=== PATIENT | female | born 1960 | race African-American/Black ===

== ENCOUNTER 2016-10-06 12:30 | Emergency (ER) | payer SELFPAY ==
[2016-10-06 11:45] LABS: BASOPHILS 0.1 %; BASOPHILS ABSOLUTE 0.01 10/3/uL (0.0-0.16); EOSINOPHILS 0 %; HEMATOCRIT 40.5 % (36.0-48.0); HEMOGLOBIN 13.7 g/dL (12.0-16.0); IMMATURE GRANULOCYTES 0.3 %; IMMATURE GRANULOCYTES ABSOLUTE 0.02 10/3/uL (0.0-0.11); LYMPHOCYTES 14.2 %; LYMPHOCYTES ABSOLUTE 1.08 10/3/uL (0.67-4.30); MEAN CORPUS HGB CONC 33.8 g/dL (32.0-36.0); MEAN CORPUSCULAR HEMOGLOB 34.3 pg (26.0-34.0); MEAN CORPUSCULAR VOLUME 101.3 fL (80-100); MEAN PLATELET VOLUME 10.1 fL (9.2-13.0); MONOCYTES 8.5 %; MONOCYTES ABSOLUTE 0.65 10/3/uL (0.21-1.20); NEUTROPHILS 76.9 %; NEUTROPHILS ABSOLUTE 5.86 10/3/uL (2.02-8.40); PLATELET COUNT 375 10/3/uL (150-400); RBC DISTRIBUTION WIDTH 15.1 % (12.0-16.0); WHITE BLOOD CELLS 7.6 10/3/uL (4.5-10.5)
[2016-10-06 11:46] LABS: ER CBC TAT 0 Hrs 05 MinsNP; MANUAL DIFF NO %
[2016-10-06 11:52] LABS: INTERNATIONAL NORMAL RATI 1.1 UNITS (-); PARTIAL THROMBO TIME 32.4 SEC (22.5-37.2); PROTIME (NOT ORD) 14.1 SEC (12.0-14.5)
[2016-10-06 12:06] LABS: CALCIUM, SERUM 8.9 MG/DL (8.5-10.4); CHEST PAIN PROFILE TAT 0 Hrs 26 Mins; CHLORIDE, SERUM 100 MMOL/L (96-112); CREATININE 1.02 MG/DL (0.55-1.02); GFR AFRICAN AMERICAN 70 ML/MIN (>=60); GFR NON AFRICAN AMERICAN 61 ML/MIN (>=60); GLUCOSE, SERUM 114 MG/DL (60-99); SODIUM, SERUM 139 MMOL/L (135-148); TROPONIN I 0.03 NG/ML (<0.05)
[2016-10-06 12:08] LABS: BUN (BLOOD UREA NITROGEN) 14 MG/DL (6-23); CO2 (CARBON DIOXIDE) 18 MMOL/L (24-34); POTASSIUM, SERUM 4.8 MMOL/L (3.5-5.3)
[~2016-10-06 12:30] MED LIST: DENIES HOME MEDS; FOLIC PO; GOODY'S EX-STR1 EAC1 PO; LEVAQUIN5T PO; LOP25 PO; LORTAB 5 PO; NICODERM C7 MG/24 HR TOP; NORV5 PO; PROTONIX PO
[2016-10-06 17:24] LABS: INFLUENZA A SCREEN NEGATIVE (NEGATIVE); INFLUENZA B SCREEN NEGATIVE (NEGATIVE)
== END 2016-10-06 18:48 | disposition home or self-care (01) ==
LOC: ER 12:30
PROVIDERS: Nurse Practitioner Family
DX: R07.9 Chest pain, unspecified (principal); R11.2 Nausea with vomiting, unspecified; R19.7 Diarrhea, unspecified; E83.42 Hypomagnesemia; R05 Cough; I10 Essential (primary) hypertension; Z88.0 Allergy status to penicillin; Z88.1 Allergy status to other antibiotic agents; Z88.5 Allergy status to narcotic agent; Z91.040 Latex allergy status; Z79.899 Other long term (current) drug therapy
CPT/HCPCS: 71010; 80048; 83690; 83735; 83880; 84484; 85025; 85610; 85730; 87070; 87804; 87880; 93005; 94640; 96374; 96375; 99285; A9270-GY; J1885; J2930

== ENCOUNTER 2017-01-23 10:16 | Inpatient (IN) | payer SELFPAY ==
--- NOTE | ~2017-01-23 | DS ---
Discharge Summary [facility] [address] [place]. [address] NAME: TARUN BETHEA : 56 STATUS : DIS IN PAT#: [id number] AGE: 56 ADM/REG DATE : 01/23/17 MR#: [id number] REPORT SERV DATE: 01/26/17 DICTATED BY: EBONY BOOKER DATE: 01/25/17 REPORT STATUS : Draft TRANSCRIBED BY: MODL DATE: 01/25/17 ADMISSION DATE: 01/23/2017 DISCHARGE DATE: 01/25/2017 PRIMARY CARE PHYSICIAN: None, so it is going to be our [facility]. FINAL DIAGNOSES: 1. Uncontrolled hypertension, improved. 2. Alcohol abuse. 3. Hypomagnesemia. 4. Hypokalemia. 5. Abdominal pain, nausea and vomiting, likely secondary to gastritis versus gastroesophageal reflux disease. 6. Folate deficiency. 7. Chronic right pulmonary nodules. 8. Likely chronic obstructive pulmonary disease. 9. Tobacco abuse. 10.Polysubstance abuse. DIAGNOSTIC EXAMS: CAT scan of the abdomen and pelvis showing hepatic steatosis, stable and aligned. No acute intra-abdominal process to account for the patient's epigastric left upper quadrant pain, peribronchial vascular thickening of the right hilum associated with 9 mm pulmonary nodule. Chest CT scan with contrast showing low-density nodule within the anterior right lower lobe measuring up to 9 x 9 mm and also a 2 mm peripheral nodule in the lateral right upper lobe. Appearance similar dating back to 09/21/2008. No new nodules or masses. Stable fibrosis within the infrahilar aspect of the right lower lobe anteriorly, parenchymal bands of atelectasis and fibrosis scattered within the right lower lobe and within the medial basilar left lower lobe, stable ectasia of the ascending thoracic aorta up to 3.7 cm in diameter, mild paraseptal emphysematous changes in the upper lobes bilaterally. Lung-RADS category [address] suggest follow up with CT scan of the chest in 12 months for further evaluation. Renal ultrasound duplex showing no Doppler evidence of renal artery stenosis. Aorta measuring 2.3 cm in diameter. Echocardiogram showing normal left ventricular systolic function with EF of 55%, septal bounce consistent with conduction delay, normal right ventricular chamber size and systolic function, moderate AR. HOSPITAL COURSE: Please refer to the H and P done by Dr. Pickens, dated on 01/23/2017. Briefly, this is a 56-year-old female with a history of hypertension, alcohol, tobacco, and marijuana use. Comes in for abdominal pain, nausea, and vomiting. The patient was admitted for similar problems in 2013. She was given a prescription for blood pressure and was counseled about her substance use. She went then to [place], did not follow up with any doctors and continued drinking about a glass of vodka a day, a pint on the weekends, smokes a pack a day, and admits to marijuana use. She came back to [place] without any PCP or any medications. The patient started having some nausea, vomiting, abdominal pain few days prior to admission and admits to taking some Goody powders and NSAIDs over the counter. The patient finally went to the emergency room, was found to have a blood pressure of 203/95. CAT scan of the abdomen was done in the ER, which shows the above findings. The patient was Discharge Summary [address] [place]. [address] NAME: TARNU BETHEA : 56 STATUS : DIS IN PAT#: [id number] AGE: 56 ADM/REG DATE : 01/23/17 MR#: [id number] REPORT SERV DATE: 01/26/17 DICTATED BY: EBONY BOOKER DATE: 01/25/17 REPORT STATUS : Draft TRANSCRIBED BY: EROS DATE: 01/25/17 given hydralazine and continued to have an elevated blood pressure, and finally admitted by Dr. Pickens. The patient was placed back on the [facility] that she was discharged on in 2013 and was given some Ativan, folic acid, thiamine for her alcohol use. She was also given PPI and Maalox. This improved her symptoms and brought down her blood pressure. We checked for other causes of hypertension and the above finding shows that the patient is doing well. We did a drug screen on the patient and it showed positive for amphetamines and cannabinoids. She denies any kind of use of amphetamines. The patient was also found with numerous electrolyte abnormalities with a potassium of 3.2, magnesium of 1.3, phosphorus of 1.8. This was supplemented. The patient was hydrated and she feels better. We gave her also some PPIs and Maalox and that improved her abdominal pain, and the nausea and vomiting stopped and she is able to eat. I discussed with her the results of the test and I told her that she is fortunate that we did not find any great problems as of yet, but I told her that she should stop her polysubstance abuse including the alcohol and tobacco, as this would ruin her health. She also needs a followup CAT scan in a year's time to monitor the nodules. The patient seems to understand. We will arrange for her to follow up with the [facility]. Follow up with case management to see if she would need financial help and she will be discharged on the following medications. Maalox 30 mL p.o. q.8 p.r.n. abdominal pain, multivitamin 1 tab p.o. daily, Protonix 40 mg before breakfast, nicotine patch 14-21 mg a day unless she started smoking again, Norvasc 5 mg a day, Coreg 12.5 mg a day. This has been explained to the patient and she agreed and understood the plan. TIME SPENT: 40 minutes. DICTATED BY: Saima Moss/EROS Ebony Booker M.D. / [id number] CC: Ebony Booker M.D.
--- NOTE | ~2017-01-23 | HP ---
History And Physical [facility] [address] [place]. [address] NAME: TARUN BETHEA : 56 STATUS : ADM IN [facility]#: [id number] AGE: 56 ADM/REG DATE : 01/23/17 MR#: [id number] REPORT SERV DATE: 01/23/17 DICTATED BY: SOLANGE PICKENS DATE: 01/23/17 REPORT STATUS : Draft TRANSCRIBED BY: MODL DATE: 01/23/17 DATE OF ADMISSION: 01/23/2017 CHIEF COMPLAINT: Abdominal pain, nausea, and vomiting. HISTORY OF PRESENT ILLNESS: Obtained from the patient as well as from emergency room documents, also prior medical records available to us were thoroughly reviewed. According to the information available, the patient is a pleasant 56-year-old black woman with known history of hypertension, who actually had a similar admission in 2013 under Hospitalist Service. The patient apparently drinks alcohol more or less on a daily basis and she has a very poor followup and does not have apparently no primary care provider. She was admitted in 2013 with similar complaints of epigastric discomfort, nausea and vomiting with severely elevated blood pressure of 203/95. Discharged home on medications for blood pressure and supposedly followup with a primary care provider. The patient presently is not on any medications. She stated that for while she has been living in [place], then she returned to [facility]. She stated that she had experienced abdominal pain for the last several days radiating towards the back associated with significant nausea, vomiting of gastric and bilious content. No hematemesis. No coffee-grounds emesis. No fever or chills reported. No dysuria. No diarrhea reported. The patient has been taking [id number] in rather significant amounts different antiinflammatories such as Goody's powders and different other "powders" decongestants for headache and back pain. The patient also has been drinking, supposedly last drink yesterday prior to admission. In the emergency room, the patient was noticed to be a very pale, frail, ill appearing, in moderate distress due to abdominal pain with a blood pressure of 199/115, pulse 107. Further investigation in the emergency room including a CT scan of the abdomen and pelvis without contrast failed to reveal any significant pathology, but had remained extremely hypertensive despite pain medications and several doses of IV hydralazine. The patient blood pressure has remained 233/117 after two doses of hydralazine IV x10. Later on during her stay in the emergency room, the patient was noticed to be extremely tremulous, agitated, tearful with signs of possible alcohol withdrawal. Her laboratory testing revealed a positive urine drug screen for amphetamines and THC as well as electrolyte abnormalities. Because of the above findings and presentation with hypertensive urgency, with history of intractable abdominal pain, nausea and vomiting, possible gastritis as well as possible alcohol withdrawal, the patient was referred to the Hospitalist Service for further management and evaluation. PAST MEDICAL HISTORY: As above. Significant for hypertension. Significant for possible alcohol abuse with dependency. Significant for continued smoking despite strong advise to quit doing so. Chain smoking from five cigarettes a day up to a pack of cigarettes daily. Significant for alcohol abuse and dependency as mentioned above. Significant for prior admission for nausea and vomiting, gastritis with likely GERD and reported fatty liver from previous imaging. History of reported stroke in as well. PAST SURGICAL HISTORY: Significant for total hysterectomy. Significant for apparent prior chest tube placement in due to significant pneumonia. SOCIAL HISTORY: The patient lives with family. She drinks excessively on a daily basis. History And Physical [address] [address] NAME: TARUN BETHEA : 56 STATUS : ADM IN [facility]#: [id number] AGE: 56 ADM/REG DATE : 01/23/17 MR#: [id number] REPORT SERV DATE: 01/23/17 DICTATED BY: SOLANGE PICKENS DATE: 01/23/17 REPORT STATUS : Draft TRANSCRIBED BY: MODNicole DATE: 01/23/17 She reports last drink yesterday. She has four children. She smokes five cigarettes to one pack of cigarettes daily. Denies adamantly any illicit recreational drug abuse. Please note that her drug screen was also positive for marijuana in 2013, but not for any other recreational drugs. Lives alone. FAMILY HISTORY: Significant for hypertension. ALLERGIES: TO PENICILLIN, CEPHALOSPORIN, CARBAPENEM, MORPHINE, AND LATEX. MEDICATIONS AT HOME: The patient does not take any regular prescribed medications, but takes [id number] rather increased amounts of Goody's powder extra strength and other antiinflammatories, possible decongestants for headache and pain control. REVIEW OF SYSTEMS: As per H and P, otherwise, negative in all review of systems. Please note that the comprehensive review of system was obtained and pertinent positives were including in the H and P. PHYSICAL EXAMINATION: GENERAL: Pleasant, cooperant, presently in mild distress and tremulous, anxious. VITAL SIGNS: Upon arrival in the emergency room, blood pressure 199/115 with a pulse of 107, respiratory rate 16, temperature 98.2, oxygen saturation 98% in room air. Note that after several doses of her IV hydralazine, her blood pressure was recorded 233/117. HEENT: With mild exophthalmos with red injected conjunctivae. Extraocular movements intact. Throat, mild erythema. No exudate. No signs of tenderness. Atraumatic and normocephalic. NECK: Supple. No JVD. No bruits. No thyromegaly. No lymph nodes. LUNGS: Bilateral air entry with few bibasilar crackles. No wheezing. HEART: Positive S1, S2. Regular rate and rhythm. Slightly tachycardic with a soft systolic ejection murmur at the left sternal border with increased S2 at the aortic area. PMI nondisplaced by palpation. ABDOMEN: Positive bowel sounds. Soft, nontender. No guarding. No hepatosplenomegaly. EXTREMITIES: With decreased range of motion. Osteoarthritic changes. No clubbing, no cyanosis, no edema. NEUROLOGIC: Alert and oriented x3. Grossly nonfocal. Cranial nerves 2 through 12 grossly intact. Motor strength 5/5 symmetrical bilateral. Mild tremor and mild ataxia. BACK: With decreased range of motion, but no focal localized tenderness. No CVA tenderness. SKIN: No bruises, no rashes, no lacerations. SIGNIFICANT LABORATORY DATA: Chest x-ray, not available, not done. EKG (personal reading) showed normal sinus rhythm at 90 beats per minute. Left ventricular hypertrophy. No acute ST elevation. CT scan of the abdomen and pelvis with preliminary report from emergency room showed hepatitic steatosis. No acute intraabdominal or intrapelvic process "right hilum associated with a 9-mm pulmonary nodule" (full report attached to chart and discussed with the patient). Urine drug screen was positive for amphetamines and THC. History And Physical [address] [address] NAME: TARUN BETHEA : 56 STATUS : ADM IN [facility]#: [id number] AGE: 56 ADM/REG DATE : 01/23/17 MR#: [id number] REPORT SERV DATE: 01/23/17 DICTATED BY: SOLANGE PICKENS ION DATE: 01/23/17 REPORT STATUS : Draft TRANSCRIBED BY: MODL DATE: 01/23/17 Sodium 139, potassium 3.3, chloride 100, bicarb 27, BUN 8, creatinine 0.8, glucose 118. Calcium 10.1, magnesium 1.3. Liver function tests within normal limits except AST of 72, which is only slightly abnormal. Lipase 154, which is normal limit. Troponin I 0.02. Serum drug screen showed only salicylate 9.2, which is not elevated. White cell count 11.1, hemoglobin 13.7 with MCV 102.4, platelet count 385. INR 1.1. Urinalysis shows protein more than 500, ketones 20, moderate bilirubin, increase urobilinogen with trace LE, negative nitrite, white cells 2, and rare bacteria. ASSESSMENT AND PLAN AND PROBLEM LIST: The patient is a pleasant 56-year-old black woman with a known history of hypertension, on no medications, presented with hypertensive urgency, intractable nausea and vomiting with possible alcohol withdrawal. IMPRESSION: 1. Cardiovascular. a. Hypertensive urgency. b. Left ventricular hypertrophy. For all the above, we are going to admit on the Hospitalist Service under cardiac telemetry setting. We are going to restart medications. The patient was controlled with at the time of discharge in 2013, which is Norvasc as well as a beta-thomas in the form Coreg at this time 12.5 mg p.o. b.i.d. We are going to use IV hydralazine p.r.n. for an increased blood pressure. We are going to use nitropaste q.6 hours, provide adequate pain control and symptomatic treatment control. Consider 2D echo. 2. Alcohol abuse and dependency with alcohol withdrawal. We are going to start alcohol withdrawal protocol. We are going to give thiamine, multivitamin, and use benzodiazepine as per protocol. 3. Electrolyte abnormalities with hypomagnesemia, hypokalemia. We are going to replace according to the protocol. Check a phosphorus level. 4. GI problem. a. Gastroesophageal reflux disease with likely gastritis and esophagitis by history. We are going to continue PPI, Protonix IV daily. Add GI cocktail p.r.n. b. Abdominal pain, intractable as above. c. Intractable nausea and vomiting. Provide adequate symptomatic relief. 5. Pulmonary. a. Tobacco dependency disorder. Provide smoking cessation education and offer nicotine replacement therapy as a nicotine patch 14 mg daily. Please note, there were more than 15 minutes spent [id number] in smoking cessation education and offer information and questions answered. b. Right hilum nodule with "crowding of the right hilar region." For all the above, we are going to obtain a dedicated CT scan of the chest with IV contrast to further evaluate the right hilum including possible nodule. Provide adequate bronchodilator therapy p.r.n. shortness of breath. 6. Miscellaneous with. a. Abnormal urine drug screen, positive for THC/cannabinoids and amphetamines. b. Proteinuria, uncertain significance. At this moment, we are going to repeat in a.m. urinalysis is still consistent and present to may need a 24-hour urine protein. History And Physical [address] [address] NAME: TARUN BETHEA : 56 STATUS : ADM IN [facility]#: [id number] AGE: 56 ADM/REG DATE : 01/23/17 MR#: [id number] REPORT SERV DATE: 01/23/17 DICTATED BY: SOLANGE PICKENS DATE: 01/23/17 REPORT STATUS : Draft TRANSCRIBED BY: EROS DATE: 01/23/17 c. "Fatty liver/hepatitic steatosis," continue to monitor liver function test to quit alcohol. PROGNOSIS: Moderately good for this admission rather poor in medium and long-term. Please note, also the written H and P, and written orders and instructions. Please note, the patient is a full code at this moment as discussed with the patient at bedside. RF/LIBERTADL Solange iPckens M.D. / [id number] CC: Zia Chance M.D.
[2017-01-23 11:34] LABS: ASCORBIC ACID (UR NOT ORDER) NEG (NEG); BILIRUBIN, URINE MODERATE (NEG); ER URINALYSIS TAT 0 Hrs 22 Mins; KETONE, URINE 20 MG/DL (NEG); LEUKOCYTE ESTERASE(NOT OR TRACE (NEG); NITRITE (URINE) NEG (NEG); WBC (NOT ORDERED) (RFLEX) 2 (0-5)
[2017-01-23 11:53] LABS: BASOPHILS 0.2 %; BASOPHILS ABSOLUTE 0.02 10/3/uL (0.0-0.16); EOSINOPHILS 0 %; ER CBC TAT 0 Hrs 05 Mins; HEMATOCRIT 38.9 % (36.0-48.0); HEMOGLOBIN 13.7 g/dL (12.0-16.0); IMMATURE GRANULOCYTES 0.3 %; IMMATURE GRANULOCYTES ABSOLUTE 0.03 10/3/uL (0.0-0.11); LYMPHOCYTES 13.8 %; LYMPHOCYTES ABSOLUTE 1.54 10/3/uL (0.67-4.30); MANUAL DIFF NO %; MEAN CORPUS HGB CONC 35.2 g/dL (32.0-36.0); MEAN CORPUSCULAR HEMOGLOB 36.1 pg (26.0-34.0); MEAN CORPUSCULAR VOLUME 102.4 fL (80-100); MEAN PLATELET VOLUME 9.8 fL (9.2-13.0); MONOCYTES 8.6 %; MONOCYTES ABSOLUTE 0.96 10/3/uL (0.21-1.20); NEUTROPHILS 77.1 %; NEUTROPHILS ABSOLUTE 8.59 10/3/uL (2.02-8.40); PLATELET COUNT 385 10/3/uL (150-400); RBC DISTRIBUTION WIDTH 14.4 % (12.0-16.0); WHITE BLOOD CELLS 11.1 10/3/uL (4.5-10.5)
[2017-01-23 12:00] LABS: INTERNATIONAL NORMAL RATI 1.1 UNITS (-); PARTIAL THROMBO TIME 31.1 SEC (22.5-37.2); PROTIME (NOT ORD) 13.7 SEC (12.0-14.5)
[2017-01-23 12:05] LABS: SALICYLATE 9.2 MG/DL (-)
[2017-01-23 12:07] LABS: ACETAMINOPHEN LEVEL (TYLENOL) < 2.0 MCG/ML (10.0-20.0); ALCOHOL < 10 MG/DL (0)
[2017-01-23 12:09] LABS: BENZODIAZEPINES (NOT ORD) NEG (NEG); COCAINE (NOT ORDERED) NEG (NEG); PHENCYCLIDINE(PCP) NEG (NEG)
[2017-01-23 12:11] LABS: ALBUMIN 3.7 G/DL (3.5-5.0); ALKALINE PHOSPHATASE 114 U/L (45-117); CHEST PAIN PROFILE TAT 0 Hrs 23 Mins; CHLORIDE, SERUM 100 MMOL/L (96-112); GFR AFRICAN AMERICAN 94 ML/MIN (>=60); GFR NON AFRICAN AMERICAN 81 ML/MIN (>=60); GLUCOSE, SERUM 118 MG/DL (60-99); SGOT(AST) 72 U/L (5-40); SGPT(ALT) 39 U/L (5-65); SODIUM, SERUM 139 MMOL/L (135-148); TOTAL PROTEIN 8.3 G/DL (6.0-8.5); TROPONIN I 0.02 NG/ML (<0.05)
[2017-01-23 12:11] LABS: AMPHETAMINES (NOT ORD) POS (NEG); CANNABINOIDS (THC) POS (NEG)
[2017-01-23 12:12] LABS: BUN (BLOOD UREA NITROGEN) 8 MG/DL (6-23); CALCIUM, SERUM 10.1 MG/DL (8.5-10.4); CO2 (CARBON DIOXIDE) 27 MMOL/L (24-34); DIRECT BILIRUBIN 0.3 MG/DL (0.0-0.4); INDIRECT BILIRUBIN(NOT ORDER) 0.7 MG/DL (0.1-0.9); POTASSIUM, SERUM 3.3 MMOL/L (3.5-5.3)
[2017-01-23 12:13] LABS: BARBITURATES (NOT ORDERED NEG (NEG); OPIATES NEG (NEG); TRICYCLICS NEG (NEG)
[2017-01-23] MEDS ORDERED: GOODY'S EX-STR1 EAC1 PO (17:28)
[2017-01-23 21:03] LABS: RETICULOCYTE COUNT 1.9 % (0.5-2.9); RETICULOCYTE COUNT ABSOLUTE 70.5 10/3/uL (20.2-119.8)
[2017-01-23 21:35] LABS: FERRITIN 59 NG/ML (8-252); IRON BINDING CAPACITY 410 MCG/DL (225-410); IRON, SERUM 94 MCG/DL (35-150); PHOSPHORUS, SERUM 2.4 MG/DL (2.5-4.5)
[2017-01-23 21:40] LABS: CK-MB 0.7 NG/ML; CPK 94 U/L (0-200); FOLATE 3.9 NG/ML (>5.2); ULTRASENSITIVE TSH 0.926 MCIU/ML (0.358-3.740)
[2017-01-24 04:48] LABS: BASOPHILS 0.1 %; BASOPHILS ABSOLUTE 0.01 10/3/uL (0.0-0.16); EOSINOPHILS 0.4 %; EOSINOPHILS ABSOLUTE 0.03 10/3/uL (0.0-0.53); HEMATOCRIT 34.9 % (36.0-48.0); HEMOGLOBIN 11.8 g/dL (12.0-16.0); IMMATURE GRANULOCYTES 0.1 %; IMMATURE GRANULOCYTES ABSOLUTE 0.01 10/3/uL (0.0-0.11); LYMPHOCYTES 20.6 %; LYMPHOCYTES ABSOLUTE 1.49 10/3/uL (0.67-4.30); MANUAL DIFF NO %; MEAN CORPUS HGB CONC 33.8 g/dL (32.0-36.0); MEAN CORPUSCULAR HEMOGLOB 34.9 pg (26.0-34.0); MEAN CORPUSCULAR VOLUME 103.3 fL (80-100); MEAN PLATELET VOLUME 9.7 fL (9.2-13.0); MONOCYTES 11.7 %; MONOCYTES ABSOLUTE 0.85 10/3/uL (0.21-1.20); NEUTROPHILS 67.1 %; NEUTROPHILS ABSOLUTE 4.85 10/3/uL (2.02-8.40); PLATELET COUNT 345 10/3/uL (150-400); RBC DISTRIBUTION WIDTH 14.3 % (12.0-16.0); RED CELL COUNT 3.38 10/6/uL (4.0-5.6); WHITE BLOOD CELLS 7.2 10/3/uL (4.5-10.5)
[2017-01-24 05:08] LABS: BUN (BLOOD UREA NITROGEN) 7 MG/DL (6-23); CHLORIDE, SERUM 101 MMOL/L (96-112); CO2 (CARBON DIOXIDE) 28 MMOL/L (24-34); CREATININE 0.75 MG/DL (0.55-1.02); GFR AFRICAN AMERICAN 102 ML/MIN (>=60); GFR NON AFRICAN AMERICAN 88 ML/MIN (>=60); GLUCOSE, SERUM 109 MG/DL (60-99); PHOSPHORUS, SERUM 1.9 MG/DL (2.5-4.5); POTASSIUM, SERUM 3.2 MMOL/L (3.5-5.3); SODIUM, SERUM 137 MMOL/L (135-148)
[2017-01-24 05:20] LABS: ALBUMIN 3.1 G/DL (3.5-5.0); BUN (BLOOD UREA NITROGEN) 7 MG/DL (6-23); CALCIUM, SERUM 9.3 MG/DL (8.5-10.4); CHLORIDE, SERUM 101 MMOL/L (96-112); CO2 (CARBON DIOXIDE) 28 MMOL/L (24-34); DIRECT BILIRUBIN 0.2 MG/DL (0.0-0.4); GFR AFRICAN AMERICAN 94 ML/MIN (>=60); GFR NON AFRICAN AMERICAN 81 ML/MIN (>=60); GLUCOSE, SERUM 108 MG/DL (60-99); INDIRECT BILIRUBIN(NOT ORDER) 0.7 MG/DL (0.1-0.9); PHOSPHORUS, SERUM 1.8 MG/DL (2.5-4.5); POTASSIUM, SERUM 3.2 MMOL/L (3.5-5.3); SGOT(AST) 40 U/L (5-40); SGPT(ALT) 31 U/L (5-65); SODIUM, SERUM 137 MMOL/L (135-148); TOTAL BILIRUBIN 0.9 MG/DL (0-1.2); TOTAL PROTEIN 6.7 G/DL (6.0-8.5); TROPONIN I 0.03 NG/ML (<0.05)
[2017-01-24 05:22] LABS: ALKALINE PHOSPHATASE 87 U/L (45-117); CK-MB 1.1 NG/ML; CPK 123 U/L (0-200)
[2017-01-25 06:27] LABS: BASOPHILS 0.2 %; BASOPHILS ABSOLUTE 0.01 10/3/uL (0.0-0.16); EOSINOPHILS 1.2 %; EOSINOPHILS ABSOLUTE 0.08 10/3/uL (0.0-0.53); HEMATOCRIT 35.1 % (36.0-48.0); HEMOGLOBIN 11.8 g/dL (12.0-16.0); IMMATURE GRANULOCYTES 0.2 %; IMMATURE GRANULOCYTES ABSOLUTE 0.01 10/3/uL (0.0-0.11); LYMPHOCYTES 14.2 %; LYMPHOCYTES ABSOLUTE 0.92 10/3/uL (0.67-4.30); MEAN CORPUS HGB CONC 33.6 g/dL (32.0-36.0); MEAN CORPUSCULAR HEMOGLOB 35.1 pg (26.0-34.0); MEAN CORPUSCULAR VOLUME 104.5 fL (80-100); MEAN PLATELET VOLUME 9.8 fL (9.2-13.0); MONOCYTES 15.4 %; NEUTROPHILS 68.8 %; NEUTROPHILS ABSOLUTE 4.48 10/3/uL (2.02-8.40); PLATELET COUNT 313 10/3/uL (150-400); RBC DISTRIBUTION WIDTH 14.1 % (12.0-16.0); RED CELL COUNT 3.36 10/6/uL (4.0-5.6); WHITE BLOOD CELLS 6.5 10/3/uL (4.5-10.5)
[2017-01-25 06:28] LABS: MANUAL DIFF NO %
[2017-01-25 06:39] LABS: CALCIUM, SERUM 9.2 MG/DL (8.5-10.4); CHLORIDE, SERUM 103 MMOL/L (96-112); CO2 (CARBON DIOXIDE) 27 MMOL/L (24-34); CREATININE 0.79 MG/DL (0.55-1.02); GFR AFRICAN AMERICAN 96 ML/MIN (>=60); GFR NON AFRICAN AMERICAN 83 ML/MIN (>=60); GLUCOSE, SERUM 102 MG/DL (60-99); POTASSIUM, SERUM 3.4 MMOL/L (3.5-5.3); SODIUM, SERUM 136 MMOL/L (135-148)
[2017-01-25 06:41] LABS: BUN (BLOOD UREA NITROGEN) 3 MG/DL (6-23); PHOSPHORUS, SERUM 2.7 MG/DL (2.5-4.5)
[2017-01-25] MEDS ORDERED: NORV5 PO (09:50)
[2017-01-25] MEDS ORDERED: COREG12 PO (09:51)
[2017-01-25] MEDS ORDERED: PROTONIX PO (09:52)
[2017-01-25] MEDS ORDERED: HABIT14 (09:52)
[2017-01-25] MEDS ORDERED: DULERA 200 MCG/13 GM INH (09:53)
[2017-01-25] MEDS ORDERED: PROAIR HFA INH (09:54)
== END 2017-01-25 14:55 | disposition home or self-care (01) | DRG 305 ==
LOC: ER 10:16 → 7NO 18:36
PROVIDERS: Internal Medicine; Nurse Practitioner
DX: I16.0 Hypertensive urgency (principal); E83.42 Hypomagnesemia; K76.0 Fatty (change of) liver, not elsewhere classified; F10.20 Alcohol dependence, uncomplicated; E87.6 Hypokalemia; K21.0 Gastro-esophageal reflux disease with esophagitis; F17.210 Nicotine dependence, cigarettes, uncomplicated; F15.10 Other stimulant abuse, uncomplicated; F12.10 Cannabis abuse, uncomplicated; J44.9 Chronic obstructive pulmonary disease, unspecified
CPT/HCPCS: 71260; 74176; 80048; 80069; 80076; 80305; 80307; 81001; 82150; 82550; 82553; 82607; 82728; 82746; 83540; 83550; 83690; 83735; 84100; 84443; 84484; 84703; 85025; 85045; 85610; 85730; 93005; 93306; 93975; 94640; 96365; 96375; 96376; 99285; A9270-GY; C9113; J0360; J1170; J2405; J3411; J3475; Q9967